=== PATIENT | male | born 1965 | race Two or more races ===

== ENCOUNTER 2020-03-13 07:41 | Day surgery (SDC) | payer OTHER ==
[~2020-03-13 07:41] MED LIST: Lactated Ringers 1,000 ML IV SCH; Sodium Chloride 0.9% 10 ML SDV IV PRN; Sodium Chloride 0.9% 10 ML Syringe FLUSH PRN; Sodium Chloride 0.9% 2.5 ML Syringe FLUSH PRN; ceFAZolin 1 GM in Premix Bag 1 BAG IV ONE
[2020-03-13] MEDS ORDERED: Lidocaine 1% 20 ML MDV ONE (09:29)
[2020-03-13] MEDS ORDERED: Midazolam 1 MG/ML 2 ML SDV ONE (09:56)
[2020-03-13] MEDS ORDERED: Triamcinolone Acetonide 0.1% Crm 15 GM Tube TOP PRN (10:47)
[2020-03-13] MEDS ORDERED: Midazolam 1 MG/ML 2 ML SDV IVPUSH ONE (10:49)
--- NOTE | 2020-03-13 17:54 | OR ---
SURGEON: Erica Martinez M.D. DATE OF PROCEDURE: 03/13/2020 PREOPERATIVE DIAGNOSIS: Phimosis. POSTOPERATIVE DIAGNOSIS: Phimosis. OPERATION: Circumcision. DESCRIPTION OF PROCEDURE: The patient was in the supine position. External genital area was prepped and draped in sterile drapes. 1% lidocaine was infiltrated circumferentially behind the glans penis. The patient was given 2 mg of Versed IV. The excess foreskin was removed. The bleeding points were tied using interrupted 3-0 chromic ties. The skin edges were reapproximated using interrupted 3-0 chromic sutures. With that done, the procedure was terminated. The patient was sent back to day surgery in good condition. He sees me if needed. EVELINE / TERRANCE /[id number]
[2020-03-14] MEDS ORDERED: TELMISARTAN 80 MG PO SCH (09:00)
[2020-03-14] MEDS ORDERED: Chlorthalidone 25 MG Tab PO SCH (09:00)
[2020-03-14] MEDS ORDERED: metFORMIN 500 MG Tab.ER PO SCH (09:00)
== END 2020-03-13 11:12 | disposition home or self-care (01) ==
LOC: MW.SDS 07:41
PROVIDERS: ATTEND Urology
DX: N47.1 Phimosis (principal); N48.0 Leukoplakia of penis; I10 Essential (primary) hypertension; E11.9 Type 2 diabetes mellitus without complications; Z79.84 Long term (current) use of oral hypoglycemic drugs; Z79.899 Other long term (current) drug therapy; Z88.8 Allergy status to other drugs, medicaments and biological substances
CPT/HCPCS: 54161; 82962; 88304; J2001; J7120